=== PATIENT | female | born 1980 | race Caucasian/White ===

== ENCOUNTER 2019-01-26 20:15 | Emergency (ER) | payer MEDICAID ==
[~2019-01-26] VITALS: Ht 152.4 cm; Wt 77.1 kg
[2019-01-26 20:40] VITALS: BP_SYST 158
[2019-01-26] MEDS ORDERED: KETOROLAC TROMETHAMINE 30 MG VIAL IVP ONE (23:15)
[2019-01-27 01:20] VITALS: BP_SYST 140
== END 2019-01-27 01:20 | disposition home or self-care (01) ==
LOC: SED 20:15
DX: G44.209 Tension-type headache, unspecified, not intractable (principal); I10 Essential (primary) hypertension; Z88.0 Allergy status to penicillin
CPT/HCPCS: 96372; 99283; J1885

== ENCOUNTER 2020-03-09 19:39 | Emergency (ER) | payer MEDICAID ==
[~2020-03-09] VITALS: Ht 152.4 cm; Wt 54.4 kg
[2020-03-09 19:45] VITALS: BP_SYST 162
[2020-03-09] MEDS: NACL 0.9% 1,000 ML IV ONE (22:38)
[2020-03-09] MEDS: DIPHENHYDRAMINE INJ 50 MG/ML VIAL IVP ONE (22:38)
[2020-03-09] MEDS: METOCLOPRAMIDE HCL 10 MG/2 ML VIAL IVP ONE (22:39)
[2020-03-09 22:44] LABS: BASOPHILS # (AUTO) 0.1 K/uL (0.0-0.2); BASOPHILS % (AUTO) 0.7 % (0.0-2.0); EOSINOPHILS # (AUTO) 0.2 K/uL (0.0-0.4); HEMATOCRIT 43.1 % (36-48); HEMOGLOBIN 14.5 g/dL (12.0-16.0); LYMPHOCYTES # (AUTO) 3.7 K/uL (1.0-5.5); LYMPHOCYTES % (AUTO) 37.2 % (20.5-51.5); MEAN CORPUSCULAR HEMOGLOBIN 30 pg (27-31); MEAN CORPUSCULAR HGB CONC 34 % (32-36); MEAN CORPUSCULAR VOLUME 90 fL (79.0-98.0); MONOCYTES # (AUTO) 0.8 K/uL (0.0-1.0); MONOCYTES % (AUTO) 7.6 % (1.7-9.3); NEUTROPHILS # (AUTO) 5.2 K/uL (1.8-7.7); NEUTROPHILS % (AUTO) 52.5 % (40.0-70.0); PLATELET COUNT (AUTO) 382 K/uL (130-430); RED BLOOD CELL COUNT(AUTO) 4.77 MIL/uL (4.2-6.2); WHITE BLOOD COUNT (AUTO) 9.9 K/uL (4.8-10.8)
[2020-03-09 23:02] LABS: CALCIUM 8.7 mg/dL (8.4-11.0); CREATININE 0.62 mg/dL (0.55-1.30); POTASSIUM 3.7 mmol/L (3.5-5.1)
[2020-03-09 23:08] LABS: ALBUMIN 4.2 g/dL (3.4-4.8); INR 0.9 (0.8-1.2); PROTHROMBIN TIME 9.2 SECS (9.5-12.5); TOTAL BILIRUBIN 0.3 mg/dL (0.0-1.0)
[2020-03-09 23:10] LABS: BILIRUBIN,URINE NEGATIVE (NEGATIVE); BLOOD, URINE NEGATIVE (NEGATIVE); CLARITY/URINE CLEAR (CLEAR); COLOR,URINE YELLOW (YELLOW); GLUCOSE,URINE NEGATIVE (NEGATIVE); KETONES,URINE NEGATIVE (NEGATIVE); LEUKOCYTE ESTERASE ,URINE NEGATIVE (NEGATIVE); NITRITE, URINE NEGATIVE (NEGATIVE); PROTEIN URINE NEGATIVE (NEGATIVE); UROBILINOGEN,URINE 0.2 (0.2-1.0)
[2020-03-09] MEDS: LISINOPRIL 10 MG TABLET (PRINIVIL) PO ONE (23:51)
[2020-03-09 23:56] VITALS: BP_SYST 113
== END 2020-03-09 23:56 | disposition other institution (70) ==
LOC: SED 19:39
DX: R51.9 Headache, unspecified (principal); I10 Essential (primary) hypertension; Z88.0 Allergy status to penicillin
CPT/HCPCS: 36415; 71045; 80053; 81003; 84484; 85025; 85610-TC; 85730-TC; 93005; 96361; 96374; 96375; 99285; J1200; J2765; J7030